=== PATIENT | female | born 1955 | race Two or more races ===

== ENCOUNTER → 2016-08-17 | Emergency (ER) | payer OTHER ==
[~2016-08-17] VITALS: Ht 165.1 cm; Wt 75.3 kg
[~2016-08-17] MED LIST: GUAIFENESIN1200 MG PO; PROMETHAZINE-C118 M1 ORAL; TAMIFLU75 MG ORAL
[2016-08-17 13:09] VITALS: BP 132/78
--- NOTE | 2016-08-17 13:35 | Emergency Room Report ---
History of Present Illness General Chief Complaint: Upper Respiratory Illness Source: Patient, Medical Record Present Illness HPI 60 YO female presents with intermittent clear/yellow productive cough with fevers and chills x 2 days. reports ill contacts with similar symptoms. reports nasal congestion , rhinorrhea and increased production of phlegm with difficulty clearing the mucus from her throat. pt. did not receive yearly flu vaccination. denies immune compromise, hx of asthma or smoking. Denies CP, Palpitations, LOC, AMS, dizziness, Changes in Vision, Sensation, paresthesias, or a sudden severe headache. Allergies: Coded Allergies: No Known Allergies (Unverified , 08/25/15) Patient History Past Medical History: see triage record Past Surgical History: none Pertinent Family History: none Now: No Immunizations: UTD Reviewed Nursing Documentation: PMH: Agreed, PSxH: Agreed Nursing Documentation-PMH Hx Cardiac Problems: Yes - 2 stents Hx Hypertension: Yes - cholesterol Hx Diabetes: Yes - borderline Review of Systems All Other Systems: negative except mentioned in HPI Physical Exam Vital Signs Date Time Temp Pulse Resp B/P Pulse Ox O2 Delivery O2 Flow Rate FiO2 08/17/16 13:09 98.4 91 16 132/78 99 Room Air Sp02 EP Interpretation: reviewed, normal General Appearance: no apparent distress, alert, GCS 15, non-toxic Head: normocephalic, atraumatic Eyes: bilateral eye PERRL, bilateral eye normal inspection ENT: hearing grossly normal, normal pharynx, no angioedema, normal voice, TMs + canals normal, uvula midline, moist mucus membranes, nasal congestion Neck: full range of motion, no meningismus, no bony tend, supple/symm/no masses Respiratory: chest non-tender, lungs clear, normal breath sounds, speaking full sentences Cardiovascular #1: regular rate, rhythm, no edema Musculoskeletal: back normal, gait/station normal, normal range of motion, non- tender, no calf tenderness Neurologic: alert, oriented x3, responsive, motor strength/tone normal, sensory intact, speech normal Psychiatric: judgement/insight normal, memory normal, mood/affect normal, no suicidal/homicidal ideation Skin: normal color, no rash, warm/dry, well hydrated Lymphatic: no adenopathy Medical Decision Making PA Attestation Dr. gerard is my supervising Physician whom patient management has been discussed with. Diagnostic Impression: Primary Impression: Upper respiratory infection Qualified Codes: J06.9 - Acute upper respiratory infection, unspecified; B97.89 - Other viral agents as the cause of diseases classified elsewhere ER Course 60 YO female presents with intermittent clear/yellow productive cough with fevers and chills x 2 days. reports ill contacts with similar symptoms. reports nasal congestion , rhinorrhea and increased production of phlegm with difficulty clearing the mucus from her throat. pt. did not receive yearly flu vaccination. denies immune compromise, hx of asthma or smoking. Denies CP, Palpitations, LOC, AMS, dizziness, Changes in Vision, Sensation, paresthesias, or a sudden severe headache. Ddx considered but are not limited to URI, pneumonia, PE, strep pharyngitis, meningitis. Vital signs: Pt. is afebrile, the remaining VS are WNL H&PE are most consistent with URI- no meningeal signs, oropharynx is not involved, no evidence of bacterial infection at this time. ORDERS: none required at this time, the diagnosis is clinical ED INTERVENTIONS: None required at this time. DISCHARGE: At this time pt. is stable for d/c to home. Will provide printed patient care instructions, and any necessary prescriptions. Care plan and follow up instructions have been discussed with the patient prior to discharge. Last Vital Signs Date Time Temp Pulse Resp B/P Pulse Ox O2 Delivery O2 Flow Rate FiO2 08/17/16 13:09 98.4 91 16 132/78 99 Room Air Disposition: HOME, SELF-CARE Condition: Stable Scripts Guaifenesin (Guaifenesin) 1,200 Mg Tab.er.12h 1200 MG PO BID for 7 Days, #14 TAB Prov: Crista Santiago 08/17/16 Codeine/Promethazine Hcl* (PROMETHAZINE-CODEINE SYRUP*) 118 Ml Syrup 5 ML ORAL Q6H Y for For Cough, #118 ML 0 Refills Prov: Crista Santiago 08/17/16 Oseltamivir Phosphate (Tamiflu) 75 Mg Capsule 75 MG ORAL TWICE A DAY for 5 Days, #10 CAP Prov: Crista Santiago 08/17/16 Patient Instructions: Upper Respiratory Infection, Adult Additional Instructions: Take medications as directed. Follow up with PCP in 3-5 days Return sooner to ED if new symptoms occur, or current symptoms become worse. Do not drink alcohol, drive, or operate heavy machinery while taking Cough Syrup as this may cause drowsiness. Crista Santiago Aug 17, 2016 13:35
[2016-08-17 13:46] VITALS: BP 132/78
== END | disposition home or self-care (01) ==
LOC: EMR 13:25
DX: J06.9 Acute upper respiratory infection, unspecified (principal); R73.03 Prediabetes; I10 Essential (primary) hypertension; B97.89 Other viral agents as the cause of diseases classified elsewhere
CPT/HCPCS: 99284